=== PATIENT | female | born 1990 | race Caucasian/White ===

== ENCOUNTER 2016-05-24 10:27 | Emergency (ER) | payer OTHER ==
[~2016-05-24] VITALS: Ht 167.6 cm; Wt 58.1 kg
[2016-05-24] MEDS ORDERED: ASPIRIN325 M2 PO (11:56)
--- NOTE | 2016-05-24 11:56 | ED ANKLE/FOOT INJURY COMPLAINT ---
History of Present Illness General Chief Complaint: Foot or Ankle Injury Stated Complaint: "I HAVE A BROKEN HEEL ANDFELL ON IT" RIGHT Source: patient, friend Exam Limitations: no limitations Allergies Coded Allergies: No Known Allergies (05/24/16) Triage Note: PT TO ED S/P RIGHT HEEL FRACTURE IN MARCH, "I HAVE 6 SCREWS IN IT", TO ED FOR PAIN S/P FELL LAST NIGHT. Triage Nurses Notes Reviewed? yes : No Patient currently breastfeeds: No HPI: 26 yo F presenting with right foot pain. Patient had open right calcaneus fractre 2.5 months ago, ORIF with [address], healing well, schduled to start weight bearing with physical therapy next week. Last night was hopping on left foot, lost balance and "slammed" right foot down flat on floor. Acute onset pain, persistent since that time, concern for new or recurrent fracture. Has parasthesias in 4th/5th toes since accident, no new motor or sensory deificits. (CLAUDIA SCHMITT,DREA) Vital Signs & Intake/Output Vital Signs & Intake/Output Vital Signs Date Time Temp Pulse Resp B/P Pulse O2 O2 Flow FiO2 Ox Delivery Rate 05/24 1041 97.9 90 20 125/74 100 Room Air Room Air Reconcile Medications Aspirin (Aspirin*) 325 MG TABLET 1 TAB PO DAILY HEART HEALTH (Reported) (TILA SCHMITT,MARLEY Araujo) Past History Travel History Traveled to [place] past 21 day No Medical History Any Pertinent Medical History? 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 Yes (CLAUDIA SCHMITT,DREA) Review of Systems Review of Systems Constitutional: Reports: no symptoms. EENTM: Reports: no symptoms. Respiratory: Reports: no symptoms. Cardiovascular: Reports: no symptoms. GI: Reports: no symptoms. Genitourinary: Reports: no symptoms. Skin: Reports: no symptoms. Neurological/Psychological: Reports: no symptoms. Hematologic/Endocrine: Reports: no symptoms. Immunologic/Allergic: Reports: no symptoms. All Other Systems: Reviewed and Negative (DREA TAYLOR MD) Physical Exam Physical Exam General Appearance: well developed/nourished, no apparent distress Head: atraumatic Eyes: Bilateral: normal appearance, PERRL, EOMI. Ears, Nose, Throat: normal ENT inspection Neck: normal inspection, supple, no midline tenderness Cardiovascular/Respiratory: regular rate/rhythm Back: normal inspection Leg/Knee/Thigh Left: normal range of motion Leg/Knee/Thigh Right: normal range of motion Comments: Right Foot: TTP over calcaneous and distal achilles tendon, Plantarflexion with king test, healed surgical scar to medial left foot with small defect on lower margin with minimal serosanguinous discharge, ROM limited by pain, parasthesias to 4th/5th toes without motor deficits (CLAUDIA SCHMITT,DREA) Progress Differential Diagnosis: fracture, dislocation, Hardware Failure (DREA TAYLOR MD) Plan of Care: Orders Procedure Date/time Status XRY-HEEL, RIGHT 05/24 1043 Active Current Medications Sig/Arley Start time Last Medication Dose Stop Time Status Admin Oxycodone/ 1 TAB ONCE ONE 05/24 1145 AC Acetaminophen 05/24 1146 (Percocet) Physician MDM: 26 yo F presenting PSH open calcaneus Fx s/p ORIF presenting with pain since fall onto foot yesterday. VSS. right foot exam as above. DDx: Fracture, Harware failure, soft tissue injury, achilles tendon strain, low concern for achilles tendon rupture, low concern for surgical site infection. Percocet given with imrpovement in pain. Right foot XR with "Status post screw fixation of the calcaneus with patchy areas of sclerosis and no discrete fracture line." D/Cory with pain control, patient already has crutches, plans to f/u with orthopedist in the next in the next 2-3 days in [facility], given return precautions. D/W Dr. Ivan. (DREA TAYLOR MD) Departure Departure Disposition: HOME OR SELF CARE Condition: Stable Clinical Impression Primary Impression: Pain of right heel Referrals: PATIENT HAS NO PRIMARY CARE DR (PCP/Family) Departure Forms: Customer Survey General Discharge Information (DREA TAYLOR MD) Resident Co-Sign Statement Statement: ED Attending supervision documentation- [x] I saw and evaluated the patient. I have also reviewed all the pertinent lab results and diagnostic results. I agree with the findings and the plan of care as documented in the Resident's documentation. [] I have reviewed the ED Record and agree with the Resident's documentation. [] Additions or exceptions (if any) to the Resident's note and plan are summarized below: [] (TILA SCHMITT,MARLEY Araujo)
--- NOTE | 2016-05-24 12:43 | RADIOLOGY REPORT ---
EXAMINATION: XR CALCANEUS, RIGHT CLINICAL INFORMATION: Right heel pain. Evaluate for refracture. Has 6 screws from right heel fracture in February. COMPARISON: None. TECHNIQUE: Lateral and axial views (6 images) of the right calcaneus were obtained. FINDINGS: There are [address] in the calcaneus. There is patchy sclerosis. There is no definite fracture line to suggest an acute fracture. There is irregular calcification or ossification in the soft tissues medial to the calcaneus on the axial views which is most likely chronic. IMPRESSION: Status post screw fixation of the calcaneus with patchy areas of sclerosis and no discrete fracture line. Comparison with prior films would be helpful.
[2016-05-24] MEDS ORDERED: PERCOCET 5-3251 EACH PO (13:08)
== END 2016-05-24 13:11 ==
LOC: ERH 10:27
DX: M79.671 Pain in right foot (principal)
CPT/HCPCS: 73650-RT